=== PATIENT | female | born 1950 | race Caucasian/White ===

== ENCOUNTER → 2018-02-03 | Outpatient (CLI) | payer MEDICARE ==
[~2018-02-03] MED LIST: ATOR40TA PO; BUDE10.2 INH; CHOL100011 PO; CITA20TA5 PO; LOSA50TA6 PO; METF500T4 PO; MULT-658 PO; NAPR-816 PO; OMEP-110 PO; REGADENOSON 0.4 MG/5 ML SYRINGE ONE; SINGULAIR PO; VITA1CAP PO; ZOLP10TA PO
== END | disposition home or self-care (01) ==
LOC: CFH 12:38
PROVIDERS: ATTEND Internal Medicine
DX: R06.02 Shortness of breath (principal); E11.65 Type 2 diabetes mellitus with hyperglycemia; E78.1 Pure hyperglyceridemia; I10 Essential (primary) hypertension; E55.9 Vitamin D deficiency, unspecified; R01.1 Cardiac murmur, unspecified; J45.901 Unspecified asthma with (acute) exacerbation; F41.9 Anxiety disorder, unspecified; E61.1 Iron deficiency; L57.0 Actinic keratosis; M25.9 Joint disorder, unspecified
CPT/HCPCS: 78452; 93017; A9502; J2785

== ENCOUNTER → 2018-03-02 | Outpatient (CLI) | payer MEDICARE ==
[~2018-03-02] MED LIST changes: -REGADENOSON 0.4 MG/5 ML SYRINGE ONE
== END | disposition home or self-care (01) ==
LOC: CFH 13:40
PROVIDERS: ATTEND Internal Medicine
DX: I34.8 Other nonrheumatic mitral valve disorders (principal); I10 Essential (primary) hypertension; E11.65 Type 2 diabetes mellitus with hyperglycemia; J45.909 Unspecified asthma, uncomplicated; E55.9 Vitamin D deficiency, unspecified; F41.9 Anxiety disorder, unspecified; E61.1 Iron deficiency; M25.9 Joint disorder, unspecified; L57.0 Actinic keratosis; E78.1 Pure hyperglyceridemia
CPT/HCPCS: 93306